=== PATIENT | male | born 1985 | race Caucasian/White ===

== ENCOUNTER 2018-10-17 01:30 | Emergency (ER) | payer OTHER ==
[~2018-10-17] VITALS: Ht 182.9 cm; Wt 86.2 kg
[~2018-10-17 01:30] MED LIST: ADVAIR 250-501 EACH; AZITHROMYCIN 2250 MG PO; COMBIVENT INH; DULERA 100 MCG/13 GM; IBUPROFEN 800800 M1; IBUPROFEN 800800 M1 PO; MEDROLDOSEPACK PO; PREDNISONE 20 M20 M1 PO; PROAIR HFA8.5 GM; PROAIR HFA8.5 GM IH; SINGULAIR 10 MG10 MG; VENTOLIN HFA 1818 GM INH; ZPAK PO
[2018-10-17 01:36] VITALS: BP 136/100
== END 2018-10-17 02:26 | disposition home or self-care (01) ==
LOC: M.ERS 01:30
DX: S60.412A Abrasion of right middle finger, initial encounter (principal); W26.8XXA Contact with other sharp object(s), not elsewhere classified, initial encounter; Y93.89 Activity, other specified; Y92.89 Other specified places as the place of occurrence of the external cause; Y99.8 Other external cause status; J45.909 Unspecified asthma, uncomplicated

== ENCOUNTER 2018-12-02 02:29 | Emergency (ER) | payer OTHER ==
[~2018-12-02] VITALS: Ht 180.3 cm; Wt 83.9 kg
[2018-12-02 03:23] VITALS: BP 132/80
== END 2018-12-02 03:23 | disposition home or self-care (01) ==
LOC: M.ERS 02:29
DX: R04.0 Epistaxis (principal)